=== PATIENT | male | born 1965 | race Hispanic/Latino ===

== ENCOUNTER 2019-10-05 15:43 | Emergency (ER) | payer BC, OTHER ==
[2019-10-05] MEDS ORDERED: IBUPROFEN 600 MG TABLET ONE (16:23)
[2019-10-05] MEDS ORDERED: ACETAMINOPHEN EXTRA STRENGTH 500 MG TABLET ONE (16:23)
[2019-10-05 17:15] LABS: RAPID GROUP A STREP POSITIVE (NEGATIVE)
[2019-10-05] MEDS ORDERED: LIDOCAINE HCL-MPF 1% 2ML VIAL ONE (17:26)
[2019-10-05] MEDS ORDERED: CEFTRIAXONE SODIUM 1 GM ONE (17:26)
== END 2019-10-05 18:41 | disposition home or self-care (01) ==
LOC: EDH 15:43
DX: J02.0 Streptococcal pharyngitis (principal); Z20.828 Contact with and (suspected) exposure to other viral communicable diseases
CPT/HCPCS: 71045; 87804 ×2; 87880; 96372; 99284; J0696; J3490

== ENCOUNTER → 2019-11-24 | Outpatient (CLI) | payer BC | END | disposition home or self-care (01) | LOC: RAH 08:44 | PROVIDERS: ATTEND Family Medicine | DX: I08.2 Rheumatic disorders of both aortic and tricuspid valves (principal); R01.1 Cardiac murmur, unspecified; R33.9 Retention of urine, unspecified | CPT/HCPCS: 93306; 93356 ==